=== PATIENT | female | born 1980 | race Asian ===

== ENCOUNTER 2021-09-17 14:07 | Emergency (ER) | payer BC, SELFPAY ==
[~2021-09-17] VITALS: Ht 162.6 cm; Wt 68.0 kg
[2021-09-17 14:38] VITALS: BP_SYST 105
[2021-09-17] MEDS ORDERED: RACEPINEPHRINE HCL 0.5 ML VIAL.NEB INH ONE (15:25)
[2021-09-17] MEDS ORDERED: IPRATROPIUM/ALBUTEROL SULFATE 3 ML AMPUL.NEB (DUONEB) INH ONE (15:45)
[2021-09-17] MEDS ORDERED: predniSONE 20 MG TABLET PO ONE (15:45)
[2021-09-17] MEDS ORDERED: PRED20TA PO (16:46)
[2021-09-17] MEDS ORDERED: ALBMDI INH (16:46)
[2021-09-17 17:00] VITALS: BP_SYST 105
== END 2021-09-17 17:00 | disposition home or self-care (01) ==
LOC: SED 14:07
DX: J45.901 Unspecified asthma with (acute) exacerbation (principal); Z79.899 Other long term (current) drug therapy
CPT/HCPCS: 94640; 99283; J7512